=== PATIENT | male | born 1940 | race Caucasian/White ===

== ENCOUNTER → 2017-01-24 | Outpatient (CLI) | payer MEDICARE ==
[~2017-01-24] MED LIST: ALBU8.5H8 INH; ALLO100T30 PO; AMLO5TAB2 PO; ASPI-496 PO; CALC400T6 PO; CEFD300C37 PO; CHOL10003 PO; DOXA8TAB63 PO; MAGN300C PO; METO50TA82 PO; MYCO500T3 PO; NIAC500T9 PO; OMEG1CAP23 PO; PRED20TA PO; RANI300C PO; TACR0.5C4 PO; TACR1CAP4 PO
== END | disposition home or self-care (01) ==
LOC: CFH 11:04
PROVIDERS: ATTEND Internal Medicine
DX: M51.36 Other intervertebral disc degeneration, lumbar region (principal); M41.86 Other forms of scoliosis, lumbar region
CPT/HCPCS: 72100

== ENCOUNTER → 2017-10-15 | Outpatient (CLI) | payer MEDICARE | END | disposition home or self-care (01) | LOC: CFH 13:34 | PROVIDERS: ATTEND Registered Nurse | DX: N26.1 Atrophy of kidney (terminal) (principal); I25.10 Atherosclerotic heart disease of native coronary artery without angina pectoris | CPT/HCPCS: 71250 ==

== ENCOUNTER → 2018-03-02 | Outpatient (CLI) | payer MEDICARE ==
[~2018-03-02] MED LIST changes: +AMLO-150 PO; -AMLO5TAB2 PO
== END | disposition home or self-care (01) ==
LOC: RAD 02-21 07:32
PROVIDERS: ATTEND Family Medicine
DX: N13.70 Vesicoureteral-reflux, unspecified (principal); Z94.0 Kidney transplant status
CPT/HCPCS: 51701; 78740; A9512